=== PATIENT | male | born 1960 | race Caucasian/White ===

== ENCOUNTER 2020-07-15 04:50 | Day surgery (SDC) | payer BC, OTHER ==
[2020-07-11 18:03] VITALS: BMI 22.9
[2020-07-15] MEDS ORDERED: oxyCODONE HCL 5 MG TABLET PO PRN ×2 (07:42→10:01)
[2020-07-15] MEDS ORDERED: PROMETHAZINE HCL 25 MG/1 ML VIAL IVPUSH PRN (07:42)
[2020-07-15] MEDS ORDERED: ONDANSETRON 4 MG/2 ML VIAL IVPUSH PRN (07:42)
[2020-07-15] MEDS ORDERED: LACTATED RINGERS SOLUTION 1,000 ML IV SCH (07:45)
[2020-07-15] MEDS ORDERED: PROPOFOL 20 ML ONE (08:03)
[2020-07-15] MEDS ORDERED: ROCURONIUM BROMIDE 50 MG/5 ML SYRINGE ONE (08:03)
[2020-07-15] MEDS ORDERED: MIDAZOLAM HCL 2 MG/2 ML SINGLE DOSE VIAL ONE (08:04)
--- NOTE | 2020-07-15 08:14 | HP ---
Satellite [facility] - Chief Complaint Chief Complaint: Right leg varicose veins History of Present Illness: 59 year old with chronic varicose veins right leg and painaand heaviness when standing. History Source: Patient Limitations to Obtaining History: No Limitations - Past Medical History Allergies/Adverse Reactions: Allergies Allergy/AdvReac Type Severity Reaction Status Date / Time No Known Allergies Allergy Verified 07/11/20 17:58 - Current Medications Current Medications: Home Medications Medication Instructions Recorded NK [No Known Home Medication] 07/11/20 Satellite Physical Exam - Physical Examination Vital Signs: Vital Signs Period Temp Pulse Resp BP Sys/Tavares Pulse Ox Last 24 Hr 98.0 F 65 16 117/73 99-99 General Appearance: Well Nourished, Well Developed, Alert & Oriented x3 ENT: Clear Lung: Clear to auscultation Heart: Regular rate & rhythm Abdomen: Soft, No tenderness Extremities: No edema, Other (Large varicose veins from groin to caalf right leg.) Neurological: Intact Satellite Impression/Plan - Impression/Plan Impression: Symptomatic varicose veins right leg Operative Procedure: Phlebectomy right leg Date to be Performed: 07/15/20
[2020-07-15] MEDS ORDERED: ceFAZolin SODIUM 1 GM VIAL IVPB ONE (08:30)
[2020-07-15] MEDS ORDERED: ceFAZolin SODIUM 1 GM VIAL ONE (08:30)
[2020-07-15] MEDS ORDERED: GLYCOPYRROLATE 0.2 MG/1 ML VIAL ONE (09:42)
[2020-07-15] MEDS ORDERED: NEOSTIGMINE METHYLSULFATE 0.5 MG/ML - 10 ML MDV ONE (09:43)
[2020-07-15] MEDS ORDERED: IBUPROFEN 600 MG TABLET (FP) PO PRN (10:01)
--- NOTE | 2020-07-15 10:01 | OP ---
Operative Note - Note: Operative Date: 07/15/20 Pre-Operative Diagnosis: Varicose veins right leg Operation: Ligation and stripping right great saphenous vein and varicosities Findings: large varicose veins right thigh and calf. Dilated GSV with severe reflux. Post-Operative Diagnosis: Same as Pre-op Surgeon: John Grace Anesthesiologist/SPLINE ROLLING MACHINE JOB SETTER: Elliott Wilhelm Anesthesia: General Estimated Blood Loss (mls): 30
[2020-07-15 12:01] VITALS: PULSE 55
[2020-07-15] MEDS ORDERED: oxyCODONE HCL 5 MG TABLET ONE (12:38)
[2020-07-15 14:00] VITALS: BP 118/67; TEMP 97
--- NOTE | 2020-07-15 19:28 | OP ---
DATE OF OPERATION: 07/15/2020 PROCEDURE: Ligation and stripping of right great saphenous vein and varicosities. PREOPERATIVE DIAGNOSIS: Symptomatic varicose veins right leg. POSTOPERATIVE DIAGNOSIS: Symptomatic varicose veins right leg. SURGEON: John Odell MD. ANESTHESIA: General anesthesia. ANESTHESIOLOGIST: Elliott Wilhelm MD. OPERATIVE FINDINGS: There was dilatation and reflux in the right great saphenous vein from the saphenofemoral junction to the calf. There were multiple large varicosities in the thigh and calf measuring over 1 cm in diameter. OPERATIVE PROCEDURE: Prior to entering the operating room, the varicose veins of the right lower leg were marked on the skin with a pen. Patient was brought into the operating room, and general anesthesia was induced. The right leg was prepped with ChloraPrep. Timeout was performed. Incision was made in the right groin over the saphenofemoral junction. Subcutaneous tissues were divided using cautery for hemostasis. The saphenous vein was identified and was mobilized. Small side branches were ligated with silk ties and divided. The saphenofemoral junction was then doubly ligated with 2-0 silk and divided. Traction was applied to the saphenous vein on the thigh, and then was dissected distally with ligation and clipping of side branches. A portion of the proximal vein was then removed. The groin wound was closed with interrupted sutures of 3-0 Vicryl in subcutaneous tissues and a subcuticular suture of 4-0 Biosyn on the skin. Segmental removal of the great saphenous vein and varicose branches was then performed through multiple incisions extending down the leg with removal of all marked veins, and the entire length of the great saphenous vein to the mid calf. These wounds were then washed with saline. The leg was elevated and dressed with Xeroform, dry gauze, combined Kerlix and Webril and Coban wrap from foot to thigh. The patient was taken to recovery room in stable condition. JOHN ODELL M.D. [id number]
--- NOTE | 2020-07-16 17:38 | PATH ---
Surgical Pathology Report Patient Name: MARIPOSA ZELAYA [facility]. Rec. #: [id number] /Age/Gender: 1960 (Age: 59) / M Account: [id number] Location: [facility] SURGICAL Taken: 07/15/2020 Received: 07/15/2020 Reported: 07/16/2020 Physicians: John Grace M.D. Specimen(s) Received VARICOSE VEINS OF RIGHT LEG Clinical History Varicose veins Final Diagnosis VARICOSE VEINS, LEG, RIGHT, PHLEBECTOMY: VEINS WITH INTIMAL HYPERTROPHY AND FIBROSIS. Electronically Signed Layla Nichols M.D. Gross Description Received in formalin labeled "varicose veins of right leg," is a 9.0 x 7.5 x 0.8 cm aggregate of abundant castrejon-pink portions of vasculature, consistent with varicose veins. Brand Advisor sections are submitted in one cassette. /07/15/2020 saudi/07/15/2020
== END 2020-07-15 13:40 | disposition home or self-care (01) ==
LOC: JASU-SURG 04:50
PROVIDERS: ATTEND Surgery
PROC: 06BP0ZZ Excision of Right Saphenous Vein, Open Approach (ICD-10-PCS; principal; 2020-07-15 08:00)
DX: I83.91 Asymptomatic varicose veins of right lower extremity (principal)
CPT/HCPCS: 88304-TC; 94760

== ENCOUNTER 2025-05-02 06:47 | Day surgery (SDC) | payer BC, OTHER ==
[2025-05-02] MEDS ORDERED: oxyCODONE HCL 5 MG TABLET PO PRN (08:44)
[2025-05-02] MEDS ORDERED: HEPARIN NA (PORCINE) 5,000 UNITS/ML 1ML VIAL ONE (08:59)
[2025-05-02] MEDS ORDERED: LIDOCAINE HCL 2% 100 MG/5 ML DISP.SYRIN ONE (09:12)
[2025-05-02] MEDS ORDERED: DEXAMETHASONE SOD PHOSPHATE 4 MG/1 ML VIAL ONE (09:12)
[2025-05-02] MEDS ORDERED: ONDANSETRON 4 MG/2 ML VIAL ONE (09:12)
[2025-05-02] MEDS ORDERED: PROPOFOL 20 ML ONE (09:13)
[2025-05-02] MEDS ORDERED: MIDAZOLAM HCL 2 MG/2 ML SINGLE DOSE VIAL ONE (09:13)
[2025-05-02] MEDS ORDERED: ROCURONIUM BROMIDE 50 MG/5 ML SYRINGE ONE (09:13)
[2025-05-02] MEDS ORDERED: ONDANSETRON 4 MG/2 ML VIAL IVPUSH PRN (09:32)
[2025-05-02] MEDS ORDERED: PROMETHAZINE HCL 25 MG/1 ML VIAL IVPB PRN (09:32)
[2025-05-02] MEDS: ceFAZolin SODIUM 1 GM VIAL IVPB ONE (09:50)
[2025-05-02] MEDS ORDERED: PROTAMINE SULFATE 50 MG/5 ML VIAL ONE (11:22)
[2025-05-02] MEDS ORDERED: ACETAMINOPHEN 1000 MG/100 ML BAG IVPB ONE (12:06)
[2025-05-02] MEDS: ACETAMINOPHEN 1000 MG/100 ML BAG IVPB ONE (12:36)
[2025-05-02] MEDS: ACETAMINOPHEN INJECTION 100 ML ONE (12:36)
[2025-05-02] MEDS: LACTATED RINGERS SOLUTION 1,000 ML IV SCH (13:59)
[2025-05-02] MEDS: ACETAMINOPHEN WITH CODEINE 300MG/30MG TABLET PO PRN (21:18)
[2025-05-02] MEDS: MUPIROCIN 2% TOPICAL OINTMENT FOR DECOLONIZATION NS SCH (21:19)
[2025-05-02] MEDS: CHLORHEXIDINE GLUCONATE 4% CLEANSER FOR DECOLONIZATION TP SCH (21:19)
[2025-05-03] MEDS: MELATONIN 5 MG TABLETS PO PRN (00:59)
[2025-05-03 06:46] LABS: POTASSIUM 3.6 mmol/L (3.5-5.1)
[2025-05-03 06:49] LABS: CALCIUM 9.1 mg/dL (8.5-10.1)
[2025-05-03 06:50] LABS: BLOOD UREA NITROGEN 5.6 mg/dL (7-18)
[2025-05-03 06:53] LABS: CREATININE 0.6 mg/dL (0.55-1.3)
[2025-05-03 06:54] LABS: HEMOGLOBIN 10.3 g/dL (13.7-17.5); MEAN CELL VOLUME 92.6 fl (79.0-92.2)
[2025-05-03 06:55] LABS: HEMATOCRIT 29.9 % (40.1-51.0); MCHC 34.4 g/dl (32.3-36.5); MEAN PLT VOLUME 9.9 fl (9.4-12.4); PLATELET COUNT 114 x10^3/uL (163-337); RDW 12.3 % (12.2-16.4)
[2025-05-03 10:34] VITALS: BP 117/90; PULSE 69; RESP 14
[2025-05-03 11:34] VITALS: TEMP 98.2
== END 2025-05-03 14:26 | disposition home or self-care (01) ==
LOC: JASUSAT 06:47 → EDSTATUS 08:00 → JICU 13:51 → JASUSAT 05-03 14:26
PROVIDERS: ATTEND Surgery
PROC: 04VC3EZ Restriction of Right Common Iliac Artery with Branched or Fenestrated Intraluminal Device, One or Two Arteries, Percutaneous Approach (ICD-10-PCS; principal; 2025-05-02 09:00)
DX: I72.3 Aneurysm of iliac artery (principal)
CPT/HCPCS: 36415; 74174-TC; 76000-TC-FY; 80048; 85027; 86850; 86900; 86901; 86922; 94010; 94760; C1769; C1894